=== PATIENT | female | born 2000 | race Hispanic/Latino ===

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

== ENCOUNTER 2021-06-24 08:02 | Day surgery (SDC) | payer OTHER ==
[2021-06-24] MEDS ORDERED: Acetaminophen 500 MG TAB PO SCH (08:30)
[2021-06-24 08:41] VITALS: BMI 30.8
[2021-06-24] MEDS ORDERED: Iron Sucrose Complex 500 MG, Admixture Fee 1 EACH in Sodium Chloride 0.9% 250 ML 250 ML IVPB SCH (09:00)
== END 2021-06-24 14:06 | disposition home or self-care (01) ==
LOC: CSHLD/OP 08:02
PROVIDERS: ATTEND Emergency Medicine
DX: O99.013 Anemia complicating pregnancy, third trimester (principal); D50.9 Iron deficiency anemia, unspecified; O24.415 Gestational diabetes mellitus in pregnancy, controlled by oral hypoglycemic drugs; O99.513 Diseases of the respiratory system complicating pregnancy, third trimester; J45.909 Unspecified asthma, uncomplicated; O99.613 Diseases of the digestive system complicating pregnancy, third trimester; K21.9 Gastro-esophageal reflux disease without esophagitis; Z3A.35 35 weeks gestation of pregnancy
CPT/HCPCS: 96365; 96366; 99282; J1756; J7050

== ENCOUNTER 2021-07-04 14:23 | Inpatient (IN) | payer BC, OTHER ==
[2021-07-04 15:40] LABS: Fetal Membranes Rupture RUPTURE DETECTED (No Rupture)
[2021-07-04] MEDS ORDERED: Ondansetron PF 4 MG/2 ML Vial IVP PRN ×2 (15:50→23:35)
[2021-07-04] MEDS ORDERED: Butorphanol Tartrate 1 MG/ML VIAL SLOW IVP PRN (15:50)
[2021-07-04] MEDS ORDERED: hydrALAZINE 20 MG/ML VIAL SLOW IVP PRN (15:50)
[2021-07-04] MEDS ORDERED: Promethazine HCl 25 MG/ML VIAL IM PRN ×2 (15:50→23:35)
[2021-07-04] MEDS ORDERED: Ibuprofen 800 MG TAB PO PRN (15:50)
[2021-07-04] MEDS ORDERED: Lidocaine 1% (PF) 30 ML VIAL SC PRN (15:50)
[2021-07-04] MEDS ORDERED: HYDROcodone/Acetaminophen 5/325 mg Tablet PO PRN ×2 (15:50)
[2021-07-04] MEDS ORDERED: Misoprostol 200 MCG TAB PR PRN (15:56)
[2021-07-04] MEDS ORDERED: Penicillin G Potassium 5 MILL.UNITS in Sodium Chloride 0.9% 100 ML IVPB SCH (16:00)
[2021-07-04] MEDS ORDERED: Lactated Ringer's 1,000 ML IV SCH (16:00)
[2021-07-04] MEDS ORDERED: Penicillin G 2.5 MILL.units 2.5 MILL.UNITS in Premix Bag 1 BAG IVPB SCH (16:00)
[2021-07-04] MEDS ORDERED: NS w/ Oxytocin 30 units 500 ML IV SCH (16:00)
[2021-07-04 16:32] LABS: Hemoglobin 11.9 g/dL (12.0-15.5); Mean Corpuscular HGB CONC 31.9 g/dL (32.0-36.0); Mean Corpuscular Hemoglobin 25.4 pg (27.0-33.0); Mean Corpuscular Volume 79.5 fl (81.6-98.3); Platelet Count 185 10x3/uL (150-450); RBC Distribution Width 22.4 % (11.5-14.5); Red Blood Cell (RBC) Count 4.69 10x6/uL (3.90-5.03); White Blood Cell (WBC) Count 9.2 10x3/uL (3.5-10.5)
[2021-07-04] MEDS: NS w/ Oxytocin 30 units 500 ML IV SCH (16:46)
[2021-07-04 17:00] LABS: Hep B Surf Ag Non-Reactive S/CO (NonReactive)
[2021-07-04 17:00] LABS: Syphilis Antibody Nonreactive (Nonreactive); Syphilis Antibody Index 0.02 S/CO (<1.00 Non-Reactive)
[2021-07-04 17:06] LABS: HBSAg Index 0.17 S/CO (0-0.99)
[2021-07-04 17:07] LABS: SARS-CoV-2 NAA Rapid Test Not Detected (NotDetected)
[2021-07-04] MEDS ORDERED: Bupivacaine 0.25% HCL 30 ML VIAL ONE (20:00)
[2021-07-04] MEDS ORDERED: ePHEDrine Sulfate 50 MG/10 ML VIAL ONE (20:00)
[2021-07-04] MEDS ORDERED: Fentanyl 2 mcg/Bup 0.1% Cadd 100 ML ONE (22:02)
[2021-07-04 23:10] VITALS: BMI 30.7
[2021-07-04] MEDS ORDERED: diphenhydrAMINE 50 MG/ML VIAL IVP PRN (23:35)
[2021-07-04] MEDS ORDERED: Acetaminophen 325 MG TAB PO PRN (23:35)
[2021-07-04] MEDS ORDERED: ePHEDrine Sulfate 50 MG/10 ML VIAL SLOW IVP PRN (23:35)
[2021-07-04] MEDS ORDERED: Naloxone HCl 0.4 mg/ml Vial IVP PRN ×2 (23:35)
[2021-07-04] MEDS ORDERED: Hydrocerin (Eucerin) Cream 120 gm Jar TOP PRN (23:35)
[2021-07-04] MEDS ORDERED: Lactated Ringer's 500 ML IV PRN (23:35)
[2021-07-04] MEDS ORDERED: Communication Order-Pharmacy FS SCH (23:45)
[2021-07-04] MEDS ORDERED: Fentanyl 2 mcg/Bupivacaine 0.1% Cassette 100 ML EPIDURAL SCH (23:45)
[2021-07-05] MEDS ORDERED: Calcium Carbonate 500 MG ChewTAB PO PRN (00:48)
[2021-07-05] MEDS ORDERED: Calcium Carbonate 500 MG ChewTAB ONE (00:58)
[2021-07-05] MEDS: Lactated Ringer's 1,000 ML IV SCH ×2 (01:04→19:48)
[2021-07-05] MEDS: NS w/ Oxytocin 30 units 500 ML IV SCH (02:04)
[2021-07-05] MEDS ORDERED: Promethazine HCl 25 MG/ML VIAL IM PRN (06:01)
[2021-07-05] MEDS ORDERED: diphenhydrAMINE 25 MG CAP PO PRN (06:01)
[2021-07-05] MEDS ORDERED: Preparation H Ointment 28 GM TUBE PR PRN (06:01)
[2021-07-05] MEDS ORDERED: hydrALAZINE 20 MG/ML VIAL SLOW IVP PRN (06:01)
[2021-07-05] MEDS ORDERED: Benzocaine-Menthol 82.5 ML CAN TOP PRN (06:01)
[2021-07-05] MEDS ORDERED: NS w/ Oxytocin 30 units 500 ML IV SCH (06:01)
[2021-07-05] MEDS ORDERED: Milk Of Magnesia 30 ML UDCUP PO PRN (06:01)
[2021-07-05] MEDS ORDERED: Ondansetron PF 4 MG/2 ML Vial IVP PRN (06:01)
[2021-07-05] MEDS ORDERED: Lanolin Ointment 7 GM TUBE TOP PRN (06:01)
[2021-07-05] MEDS ORDERED: Bisacodyl 10 MG SUPP PR PRN (06:01)
[2021-07-05] MEDS ORDERED: Ibuprofen 800 MG TAB PO SCH (06:30)
[2021-07-05] MEDS: Docusate 100 MG CAP PO SCH ×2 (09:42→20:25)
[2021-07-05] MEDS: Prenatal Vitamin 1 TAB PO SCH (09:42)
[2021-07-05] MEDS: Ferrous Sulfate 325 MG TAB PO SCH ×2 (09:43→15:32)
[2021-07-05] MEDS: Ibuprofen 800 MG TAB PO SCH ×2 (12:30→20:25)
[2021-07-06] MEDS: Ibuprofen 800 MG TAB PO SCH ×3 (05:10→21:49)
[2021-07-06] MEDS ORDERED: Boostrix 0.5 ML (Tdap) VIAL IM ONE (06:01)
[2021-07-06] MEDS: Ferrous Sulfate 325 MG TAB PO SCH ×2 (10:35→20:27)
[2021-07-06] MEDS: Prenatal Vitamin 1 TAB PO SCH (10:35)
[2021-07-06] MEDS: Docusate 100 MG CAP PO SCH ×2 (10:35→21:49)
[2021-07-07] MEDS: Ibuprofen 800 MG TAB PO SCH ×2 (05:53→13:46)
[2021-07-07] MEDS: Ferrous Sulfate 325 MG TAB PO SCH ×2 (07:15→14:03)
[2021-07-07 07:49] VITALS: BP 97/53; TEMP 97.7
[2021-07-07] MEDS: Docusate 100 MG CAP PO SCH (08:04)
[2021-07-07] MEDS: Prenatal Vitamin 1 TAB PO SCH (08:04)
== END 2021-07-07 16:30 | disposition home or self-care (01) | DRG 805 ==
LOC: CSHLD/OP 14:23 → CSHLD 16:26 → CSHPED 07-05 08:30
PROVIDERS: ADMIT Obstetrics & Gynecology; ATTEND Obstetrics & Gynecology
PROC: 10H07YZ Insertion of Other Device into Products of Conception, Via Natural or Artificial Opening (ICD-10-PCS; 2021-07-04)
PROC: 10E0XZZ Delivery of Products of Conception, External Approach (ICD-10-PCS; principal; 2021-07-05)
PROC: 0UQMXZZ Repair Vulva, External Approach (ICD-10-PCS; 2021-07-05)
DX: O42.013 Preterm premature rupture of membranes, onset of labor within 24 hours of rupture, third trimester (principal); O60.14X0 Preterm labor third trimester with preterm delivery third trimester, not applicable or unspecified; Z37.0 Single live birth; Z3A.36 36 weeks gestation of pregnancy; Z20.822 Contact with and (suspected) exposure to COVID-19; D50.9 Iron deficiency anemia, unspecified; O99.02 Anemia complicating childbirth; O24.425 Gestational diabetes mellitus in childbirth, controlled by oral hypoglycemic drugs; Z79.899 Other long term (current) drug therapy; Z79.84 Long term (current) use of oral hypoglycemic drugs; K21.9 Gastro-esophageal reflux disease without esophagitis; O99.62 Diseases of the digestive system complicating childbirth; O99.344 Other mental disorders complicating childbirth; F43.22 Adjustment disorder with anxiety; O71.82 Other specified trauma to perineum and vulva
CPT/HCPCS: 0240U; 36415; 36416; 84112; 85027; 86780; 86850; 86900; 86901; 87340; 99285; J2540; J2590; J3490; J7120; S0020

== ENCOUNTER 2022-06-11 13:41 | Emergency (ER) | payer BC, OTHER | END 2022-06-11 15:15 | disposition home or self-care (01) | LOC: CSHERS 13:41 | DX: R07.9 Chest pain, unspecified (principal); R05.9 Cough, unspecified | CPT/HCPCS: 71046; 87804; 93005; U0003; U0005 ==

== ENCOUNTER 2023-03-22 08:47 | Inpatient (IN) | payer OTHER, SELFPAY ==
[2023-03-22] MEDS ORDERED: Oxytocin 30 units/NS 500 ML 500 ML ONE (09:09)
[2023-03-22] MEDS ORDERED: Lidocaine 1% (PF) 30 ML VIAL ONE (09:09)
[2023-03-22] MEDS ORDERED: hydrALAZINE 20 MG/ML VIAL SLOW IVP PRN ×2 (09:16→10:08)
[2023-03-22] MEDS ORDERED: Methylergonovine 0.2 MG/ML VIAL IM PRN (09:16)
[2023-03-22] MEDS ORDERED: Ibuprofen 800 MG TAB PO PRN (09:16)
[2023-03-22] MEDS ORDERED: Misoprostol 200 MCG TAB PR PRN (09:16)
[2023-03-22] MEDS ORDERED: Tranexamic Acid 1,000 MG/10 ML VIAL IVP PRN (09:16)
[2023-03-22] MEDS ORDERED: Promethazine HCl 25 MG/ML VIAL IM PRN (09:16)
[2023-03-22] MEDS ORDERED: Carboprost 250 MCG/ML AMP IM PRN (09:16)
[2023-03-22] MEDS ORDERED: Lidocaine 1% (PF) 30 ML VIAL SC PRN (09:16)
[2023-03-22] MEDS ORDERED: Ondansetron PF 4 MG/2 ML Vial IVP PRN (09:16)
[2023-03-22 09:17] VITALS: BMI 29.9
[2023-03-22] MEDS ORDERED: Penicillin G Potassium 5 MILL.UNITS VIAL ONE (09:19)
[2023-03-22] MEDS ORDERED: Penicillin G Potassium 5 MILL.UNITS in Sodium Chloride 0.9% 100 ML IVPB SCH (09:30)
[2023-03-22] MEDS ORDERED: Oxytocin 30 units/NS 500 ML 500 ML IV SCH (09:30)
[2023-03-22 09:34] LABS: Hematocrit 34.4 % (34.9-44.5); Hemoglobin 11.2 g/dL (12.0-15.5); Mean Corpuscular HGB CONC 32.6 g/dL (32.0-36.0); Mean Corpuscular Hemoglobin 24.9 pg (27.0-33.0); Mean Corpuscular Volume 76.6 fl (81.6-98.3); Mean Platelet Volume 12.7 fl (7.4-10.4); Platelet Count 192 10x3/uL (150-450); RBC Distribution Width 14.8 % (11.5-14.5); Red Blood Cell (RBC) Count 4.49 10x6/uL (3.90-5.03); White Blood Cell (WBC) Count 9.1 10x3/uL (3.5-10.5)
[2023-03-22] MEDS ORDERED: Preparation H Ointment 28 GM TUBE PR PRN (10:08)
[2023-03-22] MEDS ORDERED: Lanolin Ointment 7 GM TUBE TOP PRN (10:08)
[2023-03-22] MEDS ORDERED: Milk Of Magnesia 30 ML UDCUP PO PRN (10:08)
[2023-03-22] MEDS ORDERED: Bisacodyl 10 MG SUPP PR PRN (10:08)
[2023-03-22] MEDS ORDERED: Boostrix 0.5 ML (Tdap) VIAL (>/=7 yrs of age) IM ONE (10:08)
[2023-03-22] MEDS ORDERED: Benzocaine-Menthol 82.5 ML CAN TOP PRN (10:08)
[2023-03-22] MEDS ORDERED: Acetaminophen 500 MG TAB PO PRN (10:11)
[2023-03-22 11:41] LABS: Analyzer IN Cardio CS NICU; RapidComm Collect By OR NURSE
[2023-03-22 13:26] LABS: Syphilis Antibody Nonreactive (Nonreactive); Syphilis Antibody Index 0.03 S/CO (<1.00 Non-Reactive)
[2023-03-22 13:28] LABS: HBSAg Index 0.18 S/CO (0-0.99); Hep B Surf Ag - L&D Non-Reactive S/CO (NonReactive)
[2023-03-22] MEDS ORDERED: Penicillin G 2.5 MILL.units 2.5 MILL.UNITS in Premix 1 BAG IVPB SCH (13:30)
[2023-03-22] MEDS: Ibuprofen 800 MG TAB PO SCH ×2 (14:12→18:40)
[2023-03-22] MEDS: Ferrous Sulfate 325 MG TAB PO SCH (16:42)
[2023-03-22] MEDS: Docusate 100 MG CAP PO SCH (21:19)
[2023-03-23] MEDS: Ibuprofen 800 MG TAB PO SCH (03:11)
[2023-03-23 04:27] VITALS: TEMP 97.8
[2023-03-23] MEDS: Ferrous Sulfate 325 MG TAB PO SCH (07:58)
[2023-03-23 08:11] VITALS: BP 119/74
[2023-03-23] MEDS ORDERED: Prenatal Vitamin 1 TAB PO SCH (09:00)
[2023-03-23] MEDS: Docusate 100 MG CAP PO SCH (09:53)
== END 2023-03-23 11:00 | disposition home or self-care (01) | DRG 805 ==
LOC: CSHLD/OP 08:47 → CSHLD 09:33 → CSHPP 13:13
PROVIDERS: ADMIT Family Medicine; ATTEND Family Medicine
PROC: 10E0XZZ Delivery of Products of Conception, External Approach (ICD-10-PCS; principal; 2023-03-22)
DX: O42.013 Preterm premature rupture of membranes, onset of labor within 24 hours of rupture, third trimester (principal); O45.93 Premature separation of placenta, unspecified, third trimester; Z37.0 Single live birth; O24.425 Gestational diabetes mellitus in childbirth, controlled by oral hypoglycemic drugs; D64.9 Anemia, unspecified; Z3A.34 34 weeks gestation of pregnancy; O99.02 Anemia complicating childbirth
CPT/HCPCS: 36416; 82805; 85027; 86780; 86850; 86900; 86901; 87340; 88307; J2001; J2540; J2590